=== PATIENT | female | born 2000 | race Two or more races ===

== ENCOUNTER 2023-12-06 10:40 | Emergency (ER) | payer OTHER ==
[~2023-12-06] VITALS: Ht 157.5 cm; Wt 79.8 kg
[2023-12-06 10:47] VITALS: BP 118/73; TEMP 97.8
[2023-12-06] MEDS ORDERED: AMOX500C2 PO (10:56)
[2023-12-06] MEDS ORDERED: IBUPROFEN 600 MG TABLET ONE (11:04)
[2023-12-06] MEDS ORDERED: AMOXICILLIN TRIHYDRATE 250 MG CAPSULE ONE (11:04)
[2023-12-06] MEDS: IBUPROFEN 600 MG TABLET PO ONE (11:06)
[2023-12-06] MEDS: AMOXICILLIN TRIHYDRATE 500 MG CAPSULE PO ONE (11:06)
[2023-12-06 11:07] VITALS: O2SAT 98
== END 2023-12-06 11:08 | disposition home or self-care (01) ==
LOC: ER 10:49
DX: H66.91 Otitis media, unspecified, right ear (principal)